=== PATIENT | male | born 1960 | race Caucasian/White ===

== ENCOUNTER 2019-08-27 15:09 | Outpatient (CLI) | payer SELFPAY ==
[2019-08-27 16:13] LABS: Basophils % 0.5 %; Eosinophils # 0.1 10^3/uL (0.0-0.8); Eosinophils % 1.5 %; Hematocrit 47.5 % (42.0-52.0); Hemoglobin 15.4 g/dL (11.7-16.6); Lymphocytes # 2.1 10^3/uL (0.8-4.8); Lymphocytes % 25.8 %; Mean Corpuscular HGB Conc 32.4 g/dL (30.0-36.0); Mean Corpuscular Hemoglobin 28.7 pg (28.0-34.0); Mean Corpuscular Volume 88.5 fL (80-94); Mean Platelet Volume 10.5 fL (7.4-10.4); Monocytes # 0.8 10^3/uL (0.2-0.9); Monocytes % 9.4 %; Neutrophils % 62.7 %; Nucleated Red Blood Cells % 0 %; Partial Thromboplastin Time 33.1 SECONDS (23.9-36.7); Platelet Count 285 10^3/cmm (130-400); Red Blood Count 5.37 10^6/uL (4.1-5.3); White Blood Count 7.9 10^3/uL (4.0-10.0)
[2019-08-27 16:48] LABS: Anion Gap 14.5 (5-19); Blood Urea Nitrogen 11 mg/dL (8-23); Calcium 10.2 mg/dL (8.5-10.5); Carbon Dioxide 29 mmol/L (22-29); Chloride 100 mmol/L (98-107); Glomerular Filtration Rate 86.1 mL/min (90-130); Glucose 106 mg/dL (65-115); Osmolality Calculated 286 mOsm/kg (285-295); Potassium 3.5 mmol/L (3.5-5.1); Sodium 140 mmol/L (136-145)
[2019-08-28 15:27] LABS: Quest SARS-CoV-2 RNA NOT DETECTED (NOT DETECTED)
== END 2019-08-27 15:10 | disposition home or self-care (01) ==
LOC: CDL 15:11
PROVIDERS: PCP Family Medicine; Visit Provider Internal Medicine Cardiovascular Disease
DX: I20.0 Unstable angina (principal)
CPT/HCPCS: 80048; 85025; 85730; 87635

== ENCOUNTER → 2021-07-23 15:33 | Outpatient (BNVA) | payer SELFPAY | PROVIDERS: PCP Family Medicine; Visit Provider Internal Medicine | DX: G25.81 Restless legs syndrome (principal); I82.409 Acute embolism and thrombosis of unspecified deep veins of unspecified lower extremity; I10 Essential (primary) hypertension | CPT/HCPCS: 83550 ==

== ENCOUNTER 2022-02-09 08:07 | Outpatient (CLI) | payer BC, SELFPAY ==
--- NOTE | 2022-02-09 | ECG_ITS ---
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 The baseline heart was 68 bpm with a blood pressue of 144/95 mm of Hg Lexiscan was infused over a period of 20 seconds. A total of 0.4 milligrams of Lexiscan was infused. The stress phase was continued for a total of 5 minutes. Heart rate at the end of the stress phase was 74 bpm with a blood pressure 132/85 mm of Hg. The EKG at the peak infusion revealed no significant changes few PVCs were noted during the Lexiscan infusion. Sestamibi was injected 20 seconds after the Lexiscan infusion. Heart rate at the end of the recovery phase was 72 bpm with a blood pressure of 120/84 mm of Hg. CONCLUSION: 1. No significant EKG changes with the LexiScan infusion 2. No LexiScan induced chest pain or cardiac arrhythmia 3. Normal blood pressure and heart rate response 4. Sestamibi/sestamibi perfusion scan pending; see separate report. Electronically Signed On 02-09-2022 13:04:47 CDT by Desi Ponce M.D. [email or web address]
[2022-02-09 08:34] VITALS: BMI 35.4
--- NOTE | 2022-02-09 08:35 | NMCV_ITS ---
NM vandana perf SPECT r/s* [id number] Nj [place] Age: 61 Gender: M : 1960 Exam Date: 02/09/2022 09:57 Ordering Phys: Dwayne Sebastian MD Technologist: DRISS Olson Exam Location: [facility] Indications: Chest pain STRESS TEST [facility] IMAGE PROTOCOL Rest/Stress 1 Lexiscan Day Radiopharmaceutical Dose (mCi) Administration Site Administered by Rest: Tc-99m 10.7 IV DRISS Olson Sestamibi Stress:Tc-99m 33.0 IV DRISS Olson Sestamibi Rest: 09-Feb-2022 60 Discovery 630 Stress: 09-Feb-2022 30 Discovery 630 0.4mg Lexiscan. Images obtained in supine and prone position. SPECT RESULTS Technical Quality: Excellent Raw Data Analysis: Normal Image Corrections: No attenuation or motion correction applied Summed Stress Score: 7 Summed Rest Score: 4 Summed Difference Score: 4 PERFUSION FINDINGS Small to moderate area of moderately decreased tracer uptake was noted in the basal and mid inferolateral, mid anterolateral and apical lateral regions. Some reversibility was noted in the inferolateral and mid anterolateral regions. FUNCTIONAL RESULTS (calculated via Gated SPECT) Stress Image LV EF (%): 55 Stress EDV (mL):119 TID: 1.13 Stress ESV (mL):53 FUNCTIONAL FINDINGS: Segmental wall motion analysis revealing diffuse hypokinesia of the septum IMPRESSIONS 1. Myocardial perfusion imaging revealing small to moderate area of moderately decreased tracer uptake in the inferolateral, anterolateral and apical lateral regions with some reversibility, mostly in the anterolateral region, suggesting myocardial scarring in the distribution of the left circumflex artery with some areas of evans-infarction ischemia. 2. Normal LV ejection fraction of 55%. 3. Segmental wall motion analysis revealing diffuse hypokinesia of the septum. 4. LV cavity is mildly dilated. No similar previous studies are available for comparison. Dr Desi Ponce MD FAC (Electronically Signed) Final Date: 09 February 2022 13:01 S
[2022-02-09] MEDS: regadenoson 0.4 Mg/5 ml Syringe IVP (10:06)
[2022-02-09 10:15] VITALS: BP 120/84; PULSE 72
== END 2022-02-09 08:08 | disposition home or self-care (01) ==
PROVIDERS: PCP Family Medicine; Visit Provider Internal Medicine
DX: I25.10 Atherosclerotic heart disease of native coronary artery without angina pectoris (principal)
CPT/HCPCS: 78452; 93017; A9500; J2785